=== PATIENT | male | born 1985 | race Caucasian/White ===

== ENCOUNTER 2024-10-22 18:46 | Emergency (ER) | payer OTHER, SELFPAY ==
[2024-10-22 18:51] VITALS: BP 154/92
[2024-10-22 20:32] LABS: Urine Albumin Negative (Neg - Trace); Urine Bilirubin Negative (Negative); Urine Character Clear (Clear); Urine Color Yellow; Urine Glucose Negative (Negative); Urine Ketone Negative (Negative); Urine Leukocyte Negative (Negative); Urine Nitrite Negative (Negative); Urine Occult Blood Negative (Negative); Urine Urobilinogen Negative (Neg - 1+)
--- NOTE | 2024-10-22 20:39 | ED.GENMED ---
History of Present Illness
General
Chief Complaint: Male Genito-Urinary Symptoms
Source: patient
Exam Limitations: none
Time Seen by Provider: 10/22/24 20:13
History of Present Illness
History of Present Illness:
Patient noted mild left testicular pain and swelling this morning. Pain is mild. No urinary symptoms. No trauma. Patient is faithful . No unusual sexual activity. No dysuria or frequency.
Past History
Past History
ED Past Medical History: None
ED Past Surgical History: Orthopedic and Urological (Vasectomy)
Social History
Tobacco: Non-smoker
Alcohol: None
Review of Systems
Review of Systems
All Other Systems: Not applicable
Constitutional: Denies fever or chills
Phy Exam
Physical Exam
Physical Exam:
GENERAL: Alert and oriented in no apparent distress
CARDIAC: Regular rate and rhythm without any obvious murmurs.
LUNGS: Clear breath sounds,normal
ABDOMEN: Soft, without focal tenderness or distention
: Very minimal tenderness to the left testicle more towards the epididymis. No unusual swelling erythema or warmth. Not high riding. We have hysteric reflexes symmetrical but mild bilaterally.
NEUROLOGICAL: Alert and oriented , grossly non-focal
SKIN: Warm and dry
PSYCH: Normal and appropriate interaction.
Course
Orders/Labs/Results
Orders:
Orders
10/22/24 18:55
Scrotum US [US Scrotum] Urgent
Comment:
Reason For Exam: left testicle with pain and swelling
10/22/24 20:25
Urinalysis Reflex To Culture Urgent
Date Specimen was Collected: 10/22/24
Time Specimen was Collected: 20:24
Vital Signs
Initial and Last Documented VS:
Initial Vital Signs
Temp Pulse Resp BP Pulse Ox
98.5 F 51 18 154/92 100
10/22/24 18:51 10/22/24 18:51 10/22/24 18:51 10/22/24 18:51 10/22/24 18:51
Last Documented Vital Signs
Temp Pulse Resp BP Pulse Ox
98.5 F 51 18 154/92 100
10/22/24 18:51 10/22/24 18:51 10/22/24 18:51 10/22/24 18:51 10/22/24 18:51
MDM/Problems Addressed
Differential Diagnosis Includes:
Patient in no distress. Highly doubt torsion. Good flow by ultrasound. Highly doubt bacterial infectious issue. Will give a prescription for doxycycline but will hold off for a few days to see if this improves.
*Radiology
Radiology exam reviewed: radiology read reviewed (Small left hydrocele)
*Pulse Oximetry
Patient hypoxic: no
*Critical Care Note
Total Time (30-74mins, 75-104mins- exclusive of procedures): Not Applicable
ED Attending Note
-
Portions of this chart may have been created with voice recognition software.� Occasional wrong word or��sound alike� substitutions may have occurred due to the inherent limitations of voice recognition software.
Discharge Plan
Departure
Patient Disposition: Home (Routine Discharge)
Date of Disposition: 10/22/24
Time of Disposition: 20:41
Patient with high blood pressure during this ER visit?: Yes
Discharge Problem:
Left testicular pain, Suspect mild epididymitis
Instructions: BLOOD PRESSURE
Prescriptions:
New
doxycycline hyclate 100 mg capsule
100 mg PO BID 10 Days Qty: 20 0RF
No Action
amoxicillin-pot clavulanate 875-125 mg tablet
1 tab PO BID Qty: 14 0RF
Referrals:
Uma Brown MD [Family Provider] -
Lucio Veloz MD [Active] - Next open appointment
Activity Restrictions/Additional Instructions:
Advil or Motrin for discomfort
Elevation. Either with underwear or jock
Only start antibiotics if not improving in 2 days
Return sooner with increased pain increased swelling redness fever or any other concerning symptoms. Also return immediately with any sudden increase in pain
Interventions
Interventions:
*Risk Screen - Suicide Last Done: 10/22/24 20:18
*General Assessment Last Done: 10/22/24 20:18
*Neglect/Abuse Screening Last Done: 10/22/24 20:18
*ED- Fall Risk Assessment Last Done: 10/22/24 20:18
ED-Male Genitourinary Assessment Last Done: 10/22/24 20:18
Discharge Date and Time
Print Language: TURKISH
== END 2024-10-22 20:56 | disposition home or self-care (01) ==
LOC: EMR 18:46
PROVIDERS: EMERGENCY PHYSICIAN Emergency Medicine; FAMILY PHYSICIAN Internal Medicine
DX: N50.812 Left testicular pain (principal); N43.3 Hydrocele, unspecified; R03.0 Elevated blood-pressure reading, without diagnosis of hypertension
CPT/HCPCS: 99284; 76870; 81003; 93976

== ENCOUNTER 2024-11-21 03:26 | Emergency (ER) | payer OTHER, SELFPAY ==
[2024-11-21 03:30] VITALS: BP 135/96
[2024-11-21 05:22] LABS: % Basophils 0.3 % (0-2); % Eosinophils 1.4 % (0-6); % Immature Granulocytes 0.5 % (0-0.5); % Lymphocytes 22.6 % (20.5-51.1); % Monocytes 11.1 % (1.7-9.3); % Neutrophils 64.1 % (42.2-75.2); Absolute Basophils 0.1 10^3/uL (0-0.2); Absolute Eosinophils 0.2 10^3/uL (0-0.7); Absolute Immature Granulocytes 0.1 10^3/uL (0-0.05); Absolute Lymphocytes 3.6 10^3/uL (1.2-3.4); Absolute Monocytes 1.8 10^3/uL (0.1-0.6); Absolute Neutrophils 10.1 10^3/uL (1.4-6.5); Hematocrit 40.2 % (39.0-52.0); Hemoglobin 13.8 g/dL (13.0-18.0); Mean Corp Hgb Conc. 34.3 g/dL (33.0-37.0); Mean Corpuscular Hgb 30.3 pg (27.0-31.0); Mean Corpuscular Volume 88.2 fL (80.0-94.0); Mean Platelet Volume 8.6 fL (7.4-10.4); Nucleated Red Blood Cells % 0 % (-); Platelet Count 348 10^3/uL (130-400); Red Blood Cell Count 4.56 10^6/uL (4.70-6.10); Red Cell Dist. Width 12.2 % (11.5-14.5); White Blood Cell Count 15.7 10^3/uL (4.8-10.8)
[2024-11-21 05:44] LABS: COVID-19 Antigen Negative (Negative)
[2024-11-21 06:02] LABS: ALT (SGPT) 44 U/L (0-50); AST (SGOT) 29 U/L (17-59); Alkaline Phosphatase 60 U/L (38-126); Blood Urea Nitrogen 20 mg/dl (9-20); Calcium 9.7 mg/dl (8.4-10.2); Carbon Dioxide 31 mmol/L (22-30); Chloride 107 mmol/L (98-107); Glucose 100 mg/dl (70-99); Potassium 4.2 mmol/L (3.5-5.1); Sodium 142 mmol/L (135-145); Total Bilirubin 0.6 mg/dl (0.2-1.3); Total Protein 6.9 g/dl (6.3-8.2); eGFR > 60.00
--- NOTE | 2024-11-21 06:08 | ED.GENMED ---
History of Present Illness
General
Chief Complaint: Ear Problem
Source: patient
Exam Limitations: none
Time Seen by Provider: 11/21/24 04:36
Nursing documentation reviewed up to this point in time: agreed with
History of Present Illness
History of Present Illness:
This is a 39-year-old mail with no past medical history who presents to the emergency department today with concerns of persistent, sinus symptoms and cough for the past four weeks. Patient reports that any symptoms started around Easter time, he
was originally seen by urgent care and placed on amoxicillin. Patient reports that he felt like his symptoms improved, but then the symptoms returned and were worse. Patient was seen by urgent care again and was started on cefdinir. Patient reports
that he is on day seven of cefdinir. He saw his PCP again for the symptoms and he was placed on med dose pack. Patient reports that this has not been helping. A few hours ago, he started to develop and left ear pain as well. Unlike anything he�s had
before. He denies any drainage from his left ear. He denies any pain behind his left ear. He denies any jaw pain. He needs any trouble swallowing. He needs any trauma to the ear. He denies any fevers or chills.
Past History
Past History
ED Past Medical History: None
ED Past Surgical History: Orthopedic and Urological (Vasectomy)
Social History
Tobacco: Non-smoker
Alcohol: None
Review of Systems
Review of Systems
All Other Systems: ROS reviewed and negative except as documented in HPI and ROS
Phy Exam
Physical Exam
Physical Exam:
General: Patient is well appearing and in no acute distress; non-toxic
Skin: Warm and dry, no rashes or lesions
Head: Normocephalic, atraumatic
Eyes: Sclera non-icteric. EOMs intact.
Ears: Right TM and EOC unremarkable. Cerum noted in left external auditory canal with erythematous and bulging TM no evidence of perforation
Throat: Uvula midline mild pharyngeal erythema noted
Cardiac: Regular rate and rhythm, no murmurs
Pulm: Normal respiratory effort, no wheezes, rales, or rhonchi
Neuro: CN II-XII intact, no focal neurologic deficits.
Psychiatric: Appropriate mood and affect.
Course
Orders/Labs/Results
Orders:
Orders
11/21/24 04:54
CR Chest - 2 Views Urgent
Comment:
Reason For Exam: persistent cough
11/21/24 05:06
COVID-19 Antigen Urgent
Source: Nasal Swab
Complete Blood Count/With Diff Urgent
Comprehensive Metabolic Panel Urgent
Influenza A+B Rapid Molecular Urgent
[facility] Source: Nasal Swab
Specimen Description:
11/21/24 05:46
CT Sinuses W/o Iv Contrast Urgent
Comment:
Reason For Exam: facial pain, headache
11/21/24 06:40
Dexamethasone Sod Phosphate [Decadron] 10 mg IV NOW STA
11/21/24 06:44
Dexamethasone [Decadron] 10 mg PO NOW STA
Abnormal Lab Results
11/21/24
05:06
WBC 15.7 H 10^3/uL
(4.8-10.8)
RBC 4.56 L 10^6/uL
(4.70-6.10)
Abs Immat Gran (auto) 0.1 H 10^3/uL
(0-0.05)
Absolute Neuts (auto) 10.1 H 10^3/uL
(1.4-6.5)
Absolute Lymphs (auto) 3.6 H 10^3/uL
(1.2-3.4)
Absolute Monos (auto) 1.8 H 10^3/uL
(0.1-0.6)
Monocytes % 11.1 H %
(1.7-9.3)
Carbon Dioxide 31 H mmol/L
(22-30)
Glucose 100 H mg/dl
(70-99)
11/21/24 05:06
11/21/24 05:06
Vital Signs
Initial and Last Documented VS:
Initial Vital Signs
Temp Pulse Resp BP Pulse Ox
98.9 F 87 20 135/96 100
11/21/24 03:30 11/21/24 03:30 11/21/24 03:30 11/21/24 03:30 11/21/24 03:30
Last Documented Vital Signs
Temp Pulse Resp BP Pulse Ox
98.9 F 78 18 157/95 100
11/21/24 03:30 11/21/24 07:00 11/21/24 07:00 11/21/24 07:00 11/21/24 03:30
MDM/Problems Addressed
Differential Diagnosis Includes:
ddx include chronic sinusitis, pneumonia, bronchitis, acute otitis media, otitis externa
MDM/Problems Addressed:
39 yo male presents to the ER with concerns of 4 weeks of sinus symptoms. He has failed 2 different trials of outpt abx therapy. CXR negative for pneumonia. His CT scan today shows severe elizondo paransal sinusitis with occluded bilateral ostiomeatal
units and his WBC is 15k. No fever. He also developed ear pain yesterday and has acute OM on the left. Reviewed case with ENT attending tone artist apprentice. Will initiate ciprofloxacin. Patient will be seen by Dr. Pleitez's office later this week. Patient
stable for discharge.
*Pulse Oximetry
Patient hypoxic: no
*Critical Care Note
Total Time (30-74mins, 75-104mins- exclusive of procedures): Not Applicable
Data Reviewed
Review of Other/Old Records Reveals: Records (reviewed er doc from 10/22/24, no hospital discharge summaries to review)
Source: patient and records
Patient Management
Discussion with other providers: Work Adjustment Instructor (ENT)
Escalation/DeEscalation of care consider admission/obs:
reviewed case with ED attending pt stable for discharge
ED Attending Note
-
Portions of this chart may have been created with voice recognition software.� Occasional wrong word or��sound alike� substitutions may have occurred due to the inherent limitations of voice recognition software.
Discharge Plan
Departure
Patient Disposition: Home (Routine Discharge)
Date of Disposition: 11/21/24
Time of Disposition: 06:50
Patient with high blood pressure during this ER visit?: Yes
Condition: Good
Discharge Problem:
Paranasal sinus disease, Acute otitis media
Instructions: Sinusitis in adults, Ear infections in adults, BLOOD PRESSURE
Prescriptions:
New
ciprofloxacin HCl 500 mg tablet
500 mg PO BID 7 Days Qty: 14 0RF
No Action
amoxicillin-pot clavulanate 875-125 mg tablet
1 tab PO BID Qty: 14 0RF
doxycycline hyclate 100 mg capsule
100 mg PO BID 10 Days Qty: 20 0RF
Referrals:
PRIVATE,PHYSICIAN [Family Provider] -
Activity Restrictions/Additional Instructions:
Ciprofloxacin has been sent to your pharmacy. Please take 1 tablet twice daily for 7 days.
Please stop the Medrol Dosepak.
Please call attached number to schedule appointment with Dr. Pleitez's office.
Please return to the ER for any concerns.
Interventions
Interventions:
*Risk Screen - Suicide Last Done: 11/21/24 03:34
*General Assessment Last Done: 11/21/24 03:34
*Neglect/Abuse Screening Last Done: 11/21/24 03:34
*ED- Fall Risk Assessment Last Done: 11/21/24 03:34
*ED COVID-19 Vaccine History Last Done: 11/21/24 03:34
*Nursing Disposition Last Done: 11/21/24 07:00
Discharge Date and Time
Discharge Date/Time: 11/21/24 07:01
Print Language: BHUTANESE
[2024-11-21 06:17] LABS: Albumin 4.5 g/dl (3.5-5.0)
[2024-11-21] MEDS: DECADRON 10 MG PO (06:50)
[2024-11-21 07:00] VITALS: BP 157/95
== END 2024-11-21 07:01 | disposition home or self-care (01) ==
LOC: EMR 03:26
PROVIDERS: Physician Assistant; EMERGENCY PHYSICIAN Student in an Organized Health Care Education/Training Program
DX: J32.9 Chronic sinusitis, unspecified (principal); H66.92 Otitis media, unspecified, left ear; R05.9 Cough, unspecified; Z11.52 Encounter for screening for COVID-19
CPT/HCPCS: 99284; 70486; 71046; 80053; 85025; 87502; 87811